=== PATIENT | female | born 1985 | race African-American/Black ===

== ENCOUNTER 2018-10-25 20:14 | Emergency (ER) | payer OTHER ==
[~2018-10-25] VITALS: Ht 175.3 cm; Wt 98.7 kg
[2018-10-25 20:18] VITALS: PULSE 91; Ht 175.3 cm; Wt 98.7 kg
[2018-10-25] MEDS ORDERED: CEPH-443 PO (22:39)
[2018-10-25] MEDS ORDERED: NAPR-985 PO (22:41)
[2018-10-25] MEDS ORDERED: PHEN-538 PO (22:41)
[2018-10-25 23:06] VITALS: BP 125/80; RESP 18
--- NOTE | 2018-10-25 23:40 | ERD ---
ER Documentation Chief Complaint Chief Complaint DYSURIA, HEMATURIA X'S 2 DAYS HPI History of Present Illness: 33-year-old female with no past medical history coming in today with complaint of urinary symptoms. Associated symptoms include dysuria, frequency, hematuria, or suprapubic pain. Patient reports symptoms present for 2-3 days. Patient reports a recent urinary tract infection that caused a kidney infection in July 2018. Patient denies flank pain, fever, chills, malice At home pharmacological/nonpharmacological treatment for symptoms: Pyridium Denies social concerns; Denies recent foreign travel ROS All systems reviewed and are negative except as per history of present illness. Medications Home Meds Active Scripts Naproxen* (Naprosyn*) 500 Mg Tablet, 500 MG PO BID PRN for PAIN AND/OR INFLAMMATION, #30 TAB Prov:JULIUS SANTANA NP 10/25/18 Phenazopyridine Hcl* (Pyridium*) 200 Mg Tab, 200 MG PO TID PRN for URINARY PAIN, #6 TAB Prov:JULIUS SANTANA NP 10/25/18 Cephalexin* (Keflex*) 500 Mg Capsule, 500 MG PO QID for urine infection for 7 Days, CAP Prov:JULIUS SANTANA V [employer] 10/25/18 PMhx/Soc Medical and Surgical Hx: pt denies Medical Hx, pt denies Surgical Hx Hx Alcohol Use: No Hx Substance Use: No Hx Tobacco Use: Yes (CIGARETTES) Smoking Status: Current every day smoker FmHx Family History: diabetes, coronary disease Physical Exam Vitals Vital Signs Date Temp Pulse Resp B/P (MAP) Pulse Ox O2 O2 Flow FiO2 Time Delivery Rate 10/25/18 18 125/80 98 Room Air 23:06 (95) 10/25/18 98.3 91 20 143/65 98 20:18 (91) Physical Exam Const: No acute distress Head: Atraumatic Eyes: Normal Conjunctiva ENT: Normal External Ears, Nose and Mouth. Neck: Full range of motion. No meningismus. Resp: Clear to auscultation bilaterally Cardio: Regular rate and rhythm, no murmurs Abd: Soft, positive suprapubic tenderness, non distended. Normal bowel sounds. Skin: No petechiae or rashes Back: No midline or flank tenderness Ext: No cyanosis, or edema Neur: Awake and alert Psych: Normal Mood and Affect Results 24 hrs Laboratory Tests Test 10/25/18 20:59 Urine Color CASPER Urine Clarity CLEAR Urine pH 6.0 Urine Specific Laura 1.021 Urine Ketones NEGATIVE mg/dL Urine Nitrite POSITIVE mg/dL Urine Bilirubin NEGATIVE mg/dL Urine Urobilinogen 2+ mg/dL Urine Leukocyte Esterase NEGATIVE Felton/ul Urine Microscopic RBC 141 /HPF Urine Microscopic WBC 20 /HPF Urine Bacteria FEW /HPF Urine Mucus FEW /HPF Urine Hemoglobin 1+ mg/dL Urine Glucose NEGATIVE mg/dL Urine Total Protein 1+ mg/dl Procedures/MDM ED course includes a thorough examination and history. Medications: -- Imaging: -- Labs: -- Low suspicion for life-threatening medical emergency. Low suspicion for acute abdominal or genitourinary emergency immediate surgical intervention. Low suspicion for infectious process at requires hospitalization. Patient afebrile vital signs are stable. Otherwise healthy patient presenting with constellation of symptoms likely representing urinary tract infection with hematuria as characterized by history, physical exam findings, lab findings. Urinalysis reveals positive nitrites, RBCs, WBCs, hemoglobin, bacteria, protein. No respiratory distress, otherwise relatively well appearing and nontoxic. Patient requesting" strong medication"for pain. Educated patient that we have given her prescription for naproxen and Pyridium which should help control pain. If she is compliant with antibiotics, pain should dissipate in the next 24-48 hours. Educated her that she should continue prescription despite pain going away to ensure no recurrence of infection. Patient verbalizes understanding of instructions. disposition given. patient educated on diagnoses, prescriptions, follow-up care, return precautions. Strict return precautions given for worsening condition; questions answered discharge. Disposition for discharge with followup in 2 days with PCP/clinic. Blood Pressure Assessment: Patient's blood pressure was elevated (>120/80) but appears stable without evidence of hypertension emergency or urgency. The patient was counseled about the risks of hypertension and urged to pursue outpatient monitoring and therapy within a week with their primary care physician. Departure Diagnosis: Primary Impression: Urinary tract infection Urinary tract infection type: site unspecified Hematuria presence: with hematuria Qualified Codes: N39.0 - Urinary tract infection, site not specified; R31.9 - Hematuria, unspecified Condition: Stable Patient Instructions: Understanding Urinary Tract Infections (UTIs) Referrals: COMMUNITY CLINICS YOU HAVE RECEIVED A MEDICAL SCREENING EXAM AND THE RESULTS INDICATE THAT YOU DO NOT HAVE A CONDITION THAT REQUIRES URGENT TREATMENT IN THE EMERGENCY DEPARTMENT. FURTHER EVALUATION AND TREATMENT OF YOUR CONDITION CAN WAIT UNTIL YOU ARE SEEN IN YOUR DOCTORS OFFICE WITHIN THE NEXT 1-2 DAYS. IT IS YOUR RESPONSIBILITY TO MAKE AN APPOINTMENT FOR FOLOW-UP CARE. IF YOU HAVE A PRIMARY DOCTOR --you should call your primary doctor and schedule an appointment IF YOU DO NOT HAVE A PRIMARY DOCTOR YOU CAN CALL OUR PHYSICIAN REFERRAL HOTLINE AT IF YOU CAN NOT AFFORD TO SEE A PHYSICIAN YOU CAN CHOSE FROM THE FOLLOWING [facility] [address] [facility] [address] [facility] [place] [facility] [address] [facility] [address]. [facility] [address] [facility] [facility] YOU HAVE RECEIVED A MEDICAL SCREENING EXAM AND THE RESULTS INDICATE THAT YOU DO NOT HAVE A CONDITION THAT REQUIRES URGENT TREATMENT IN THE EMERGENCY DEPARTMENT. FURTHER EVALUATION AND TREATMENT OF YOUR CONDITION CAN WAIT UNTIL YOU ARE SEEN IN YOUR DOCTORS OFFICE WITHIN THE NEXT 1-2 DAYS. IT IS YOUR RESPONSIBILITY TO MAKE AN APPOINTMENT FOR FOLOW-UP CARE. IF YOU HAVE A PRIMARY DOCTOR --you should call your primary doctor and schedule and appointment IF YOU DO NOT HAVE A PRIMARY DOCTOR YOU CAN CALL OUR PHYSICIAN REFERRAL HOTLINE AT . IF YOU CAN NOT AFFORD TO SEE A PHYSICIAN YOU CAN CHOSE FROM THE FOLLOWING [facility] INSTITUTIONS: [facility] [address] [place] [address] [facility] [address] [place] [address] [facility] [address] [place] [address] Additional Instructions: Thank you very much for allowing us to participate in your care. Your health and safety is our top priority at [facility]. It is important to read all discharge instructions and education provided in your discharge packet. Call your primary care doctor TOMORROW for an appointment during the next 2-4 days and bring all the information and medications prescribed. Have prescriptions filled and follow precisely the directions on the label. -Keflex (cephalexin) is an antibiotic; take this medication every day every 6 hours as listed on your prescription. You must complete the entire course of treatment that is listed on your prescription this is very important because it takes a certain number of days to kill the bacteria that is causing the infection. -Pyridium is a medication that will help with discomfort to urinary tract. If the symptoms get worse and your provider is unavailable, return to the Emergency Department immediately. JULIUS SANTANA NP Oct 25, 2018 23:40
== END 2018-10-25 23:07 | disposition home or self-care (01) ==
LOC: FTE 20:14
DX: N39.0 Urinary tract infection, site not specified (principal); F17.210 Nicotine dependence, cigarettes, uncomplicated
CPT/HCPCS: 81001; 87210; Z7502; 99283